=== PATIENT | female | born 1945 | race African-American/Black ===

== ENCOUNTER 2023-06-12 12:26 | Emergency (ER) | payer SELFPAY ==
[~2023-06-12] VITALS: Ht 165.1 cm; Wt 69.0 kg
[2023-06-12 12:35] VITALS: O2SAT 98
[2023-06-12 14:46] VITALS: BP 140/88; PULSE 96; RESP 16
== END 2023-06-12 14:47 | disposition home or self-care (01) ==
LOC: ER 12:26
DX: Z63.8 Other specified problems related to primary support group (principal); F31.9 Bipolar disorder, unspecified; Z88.8 Allergy status to other drugs, medicaments and biological substances
CPT/HCPCS: 99283